=== PATIENT | female | born 1955 | race Caucasian/White ===

== ENCOUNTER 2021-09-24 08:29 | Emergency (ER) | payer MEDICARE, OTHER, SELFPAY ==
[2021-09-24] VITALS (19 sets, daily range): BP systolic 130–149; BP diastolic 67–87; PULSE 65–83; RESP 16–18; TEMP 36.9–37.2; O2SAT 97–100
--- NOTE | ~2021-09-24 | CT_ITS ---
EXAMINATION: CTA brain carotid DATE: 09/24/2021 14:15 INDICATION: Dizziness. Headache. TECHNIQUE: Computed tomographic angiography (CTA) of the head was performed with 100 mL Omnipaque-350 intravenous contrast. CTA of the neck was performed with intravenous contrast. Automated exposure co ntrol and iterative reconstruction technique were employed. The dose-length product was 1075.47 mGy-c m. Maximum intensity projection and volume rendered 3D-reconstructions were created by the [facility]arta st on a separate workstation. COMPARISON: Head CT 09/24/2021 FINDINGS: HEAD CTA: There is no intracranial hemorrhage, acute infarction, or abnormal intracranial mass lesion . The ventricles are normal in size. There is mild mucosal thickening in right maxillary sinus. The o rbits are normal. The mastoid air cells are normal. The vertebral arteries are codominant. There is n o significant stenosis of basilar artery or the posterior cerebral arteries. There is no significant stenosis of the intracranial internal carotid arteries or anterior or middle cerebral arteries. Anter ior communicating artery is normal. NECK CTA: There are no pathologically enlarged lymph nodes. There is no significant stenosis of the v ertebral arteries there is mild plaque in the proximal internal carotid arteries. There is 0% stenosi s of the proximal right internal carotid artery relative to normal distal artery lumen diameter (NASC ET criteria). There is 0% stenosis of the proximal left internal carotid artery relative to normal di stal artery lumen diameter. There is mild cervical spondylosis. There are mild chronic compression fr actures of T2 and T4. IMPRESSION: 1. No acute intracranial pathology. 2. No aneurysm or significant intracranial arterial stenosis. 3. 0% stenosis of the proximal internal carotid arteries relative to normal distal artery lumen diame ters (NASCET criteria). Reviewed, dictated and finalized at location A. IMPRESSION: 1. No acute intracranial pathology. 2. No aneurysm or significant intracranial arterial stenosis. 3. 0% stenosis of the proximal internal carotid arteries relative to normal dis wu artery lumen diameters (NASCET criteria).
--- NOTE | ~2021-09-24 | CT_ITS ---
EXAMINATION: CT brain wo con EXAM DATE: 09/24/2021 09:06 INDICATION: Headaches with emesis. TECHNIQUE: Spiral CT of the head was performed without contrast. Axial, coronal and sagittal images were reviewed. The dose-length product (DLP) for this examination was 605.33 mGy-cm. The exposure w as tailored according to patient size, and iterative reconstruction (ASIR) was used as additional dos e reduction technique. There is no prior study for comparison. FINDINGS: There is no acute intraparenchymal hemorrhage. No evidence of intraparenchymal brain mass lesion. No evidence of acute infarction. There is no mass effect or midline shift. The ventricles are normal in size. There are no extra-axial collections. There are no acute calvarial fractures. T he orbits are unremarkable. Soft tissue is unremarkable. The visualized sinuses and mastoid air matteo ls are well aerated. IMPRESSION: No acute intracranial findings. Reviewed, dictated and finalized at location A.
[2021-09-24 09:03] LABS: Basophils Percent Auto 0.4 % (0.2-1.2); Eosinophils Percent Auto 0.8 % (0-4.4); Hematocrit 45.2 % (37.0-47.0); Hemoglobin 14.8 g/dL (12.0-15.0); Immature Granulocyte Absolute 0.02 K/mm3 (0.00-0.031); Immature Granulocyte Percent A 0.4 % (0-0.5); Lymphocytes Absolute Auto 1.08 K/mm3 (0.9-3.2); Lymphocytes Percent Auto 20.7 % (18.3-44.2); Mean Corpuscular HGB Conc 32.7 g/dl (32-36); Mean Corpuscular Hemoglobin 29.3 pg (26-34); Mean Corpuscular Volume 89.5 fl (80-100); Mean Platelet Volume 9.8 fl (7.4-10.4); Monocytes Absolute Auto 0.4 K/mm3 (0.1-0.6); Monocytes Percent Auto 8.4 % (2.6-8.5); Neutrophils Absolute Auto 3.6 K/mm3 (1.3-6.7); Neutrophils Percent Auto 69.3 % (45.5-73.1); Platelet Count Result 251 k/mm3 (150-375); Red Blood Count 5.05 M/mm3 (4.2-5.4); Red Cell Distribution Width 13.6 % (11.5-14.5); White Blood Count 5.2 K/mm3 (4.5-10.0)
[2021-09-24 09:12] LABS: Prothrombin Time 12.7 Seconds (11.1-14.7)
[2021-09-24 09:13] LABS: Partial Thromboplastin Time 28.7 SECONDS (22.3-36.8)
[2021-09-24 09:14] LABS: Alanine Aminotransferase 23 U/L (4-35); Albumin Level 4.6 g/dL (3.5-5.1); Alkaline Phosphatase 64 U/L (38-126); Anion Gap 7 mmol/L (8-16); Aspartate Amino Transferase 24 U/L (14-36); Bilirubin,Total 0.6 mg/dL (0.2-1.3); Blood Urea Nitrogen 13 mg/dL (7-17); Calcium 9.5 mg/dL (8.4-10.2); Carbon Dioxide 28 mmol/L (22-30); Chloride 104 mmol/L (98-107); Estimated CRCL calculation 59 ml/min; Estimated Glomerular Filt Rate > 60; Glucose 139 mg/dL (65-110); Potassium 4.2 mmol/L (3.4-5.0); Sodium 139 mmol/L (137-145)
[2021-09-24] MEDS: SODIUM CHLORIDE 0.9% IV 1,000 ML 999 ML IV CONT (09:25)
[2021-09-24] MEDS: ONDANSETRON INJ 4 MG/2 ML VIAL IV PUSH (09:26)
[2021-09-24] MEDS: KETOROLAC 30 MG/ML VIAL (*BKC) IV PUSH (09:28)
[2021-09-24 10:44] LABS: CRP < 0.5 mg/dL (<1.0)
[2021-09-24] MEDS: fentaNYL CITRATE INJ (*CRX) 100 MCG/2 ML VIAL 25 MCG IV PUSH (10:51)
[2021-09-24 11:04] LABS: Erythrocyte Sedimentation Rate 20 mm/hr (0-20)
[2021-09-24] MEDS: diphenhydrAMINE HCl INJ 50 MG/ML VIAL 25 MG IV PUSH (12:29)
--- NOTE | 2021-09-24 12:36 | PC.NURSE ---
CTA ordered, PT on;y has 22g IV attempted to place a 20g IV unsuccessfully due to poor vasculature. PT wishes to take Benadryl prior to additional IV attempts.
--- NOTE | 2021-09-24 13:38 | PC.NURSE ---
ANIMAL CAREGIVER attempted US guided IV unsuccessfully. Vascular access now at bedside to attempt IV placement.
--- NOTE | 2021-09-24 15:07 | ED.GENADULT ---
HPI - General Adult General Chief complaint: Headache Stated complaint: Headache w/ vomiting Time Seen by Provider: 09/24/21 08:43 Source: RN notes reviewed History of Present Illness HPI narrative: Patient presents emergency department from home for headache. Patient states symptoms began 2 days ago the pain is located in the left temporal region and does not radiate the pain begins just over the left eyebrow and radiates down to the left zoroastrian area she denies any pressure in the eye she denies any vision changes she denies any generalized headache or radiation of the pain to anywhere other than in the left temporal region she states she has had 2 episodes of nausea vomiting with the pain and she states that she took Tylenol at home for the pain with minimal relief she denies any fevers or chills rhinorrhea sore throat chest pain shortness of breath or any other symptoms she denies any neck pain. States she does have a history of tinnitus and recently saw ENT. She states the area is tender to touch she denies any known rashes Related Data Home Medications Medication Instructions Recorded Confirmed fexofenadine 180 mg tablet 180 mg PO DAILY 06/04/19 07/13/21 vit cap PO 01/04/21 07/13/21 C,E,zinc,Wr-uvqry-3-lutein-zeaxanthin 250 mg-2.5 mg-0.5 mg capsule vitamins A,C,R-optr-hpsias 14,320 1 cap PO BID 07/13/21 07/13/21 unit-226 mg-200 unit capsule Allergies Allergy/AdvReac Type Severity Reaction Status Date / Time codeine Allergy Intermediate Vomiting Verified 09/24/21 10:55 morphine Allergy Intermediate Vomiting Verified 09/24/21 10:55 piroxicam Allergy Intermediate Blister Verified 09/24/21 10:55 tramadol Allergy Intermediate Vomiting Verified 09/24/21 10:55 Review of Systems Review of Systems: Gen.: Denies fevers or chills Eyes: Denies eye pain or visual change ENT: Denies congestion Respiratory: Denies shortness of breath or cough CV: Denies chest pain or palpitations GI: Denies abdominal pain or diarrhea reports nausea vomiting x2 Musculoskeletal: Denies back pain or muscle pain Neuro: See HPI Skin: Denies rash Except as documented, all other systems reviewed and negative PMFSH Past Medical History Medical History Arthritis Chest wall contusion Congestion of nasal sinus Contusion of foot, left Eye injury Hair loss HLD (hyperlipidemia) Hyperthyroidism Vision changes Surgical History Surgical History History of breast surgery History of bunionectomy Left foot by Dr. Santillan History of sinus surgery deviated septum by Dr. ramos Family History Family History Mother Family history of Alzheimer's disease Father Family history of pancreatic cancer, Onset Age: 79 Patient's father is Other Arthritis Breast cancer Diabetes mellitus HLD (hyperlipidemia) Heart disease Hypertension Pancreatic cancer Social History Social History Smoking status: Never smoker Second hand tobacco smoke exposure: No Smoking end date: 06/19/86 Alcohol intake: current Substance use: never Substance use type: does not use Gender identity (if verbalized by the patient): Female Exam Narrative: APPEARANCE: No acute distress, nontoxic, resting in bed HEENT: Normocephalic, atraumatic, OMM, TMs clear bilaterally tender to palpation over the left forehead just above the left eyebrow and then laterally down to the left lateral temporal region there is no overlying erythema or signs of rash EYES: PERRL, EOMI NECK: Supple, nontender, full range of motion without pain, no meningismus RESPIRATORY: No respiratory distress, clear to auscultation bilaterally with no rhonchi wheezing or rales CARDIOVASCULAR: RRR s murmur ABDOMINAL: Soft, nontender, nondiste
== END 2021-09-24 15:30 | disposition home or self-care (01) ==
PROVIDERS: Emergency Provider Emergency Medicine; PCP Internal Medicine
DX: R51.9 Headache, unspecified (principal); M19.90 Unspecified osteoarthritis, unspecified site; E78.5 Hyperlipidemia, unspecified; E05.90 Thyrotoxicosis, unspecified without thyrotoxic crisis or storm; Z87.891 Personal history of nicotine dependence
CPT/HCPCS: 36415; 70450; 70496; 70498; 80053; 85025; 85610; 85652; 85730; 86140; 96361; 96374; 96375; 99284; J1200; J1885; J2405; J3010; J7030; Q9967

== ENCOUNTER 2023-03-27 12:29 | Outpatient (CLI) | payer MEDICARE, OTHER, SELFPAY ==
--- NOTE | ~2023-03-27 | XR_ITS ---
EXAMINATION: XR knee LT 3V DATE: 03/27/2023 13:02 INDICATION: Left knee pain. TECHNIQUE: 3 views of left knee including standing views were obtained. COMPARISON: None. FINDINGS: Bone alignment is normal. No fracture. There is mild tricompartmental osteoarthritis. No kn ee joint effusion. IMPRESSION: 1. Mild left knee osteoarthritis. Reviewed, dictated and finalized at location A.
--- NOTE | ~2023-03-27 | XR_ITS ---
EXAM: XR knee RT 3V DATE: 03/27/2023 13:02 HISTORY: M25.561 - Pain in right knee, TWIST INJURY 2WKS AGO . COMPARISON: None available. FINDINGS: Decreased mineralization. No fracture or dislocation. No lytic or blastic lesion. Severe m edial joint space narrowing. Moderate tricompartmental osteophytosis. Moderate volume joint effusion. No erosion or periosteal change. Soft tissues within normal limits. IMPRESSION: No acute osseous finding in the right knee. Tricompartmental right knee osteoarthritis, severe in the medial compartment. Reviewed, dictated and finalized at location K.
== END 2023-03-27 12:30 | disposition home or self-care (01) ==
PROVIDERS: PCP Internal Medicine; Visit Provider Internal Medicine
DX: M25.561 Pain in right knee (principal); M25.562 Pain in left knee; M17.0 Bilateral primary osteoarthritis of knee
CPT/HCPCS: 73562

== ENCOUNTER 2023-10-30 11:33 | Outpatient (CLI) | payer MEDICARE, OTHER, SELFPAY ==
--- NOTE | ~2023-10-30 | XR_ITS ---
AP and lateral views of the right hip Clinical history: Pain Findings: No acute fracture or dislocation is seen. Osseous alignment is anatomic. Right hip joint is preserved. Soft tissues are unremarkable. Impression: No significant abnormality is seen. Reviewed, dictated and finalized at location M. Impression: No significant abnormality is seen.
--- NOTE | ~2023-10-30 | XR_ITS ---
Lumbosacral Spine: AP and lateral views Clinical History: Pain Findings: The normal lordotic curve is maintained. No fracture seen. Minimal grade 1 anterolisthesis of L4 over L5 present. There is advanced facet arthropathy throughout the lumbar spine. There are min imal degenerative disc changes. The sacroiliac joints are normally outlined. Impression: Moderate degenerative spondylosis overall. Minimal grade 1 anterolisthesis of L4 over L5. Reviewed, dictated and finalized at location . Impression: Moderate degenerative spondylosis overall. Minimal grade 1 anterolisthesis of L4 over L5.
== END 2023-10-30 11:34 | disposition home or self-care (01) ==
LOC: ANHIMG 11:37
PROVIDERS: PCP Internal Medicine; Visit Provider Internal Medicine
DX: M25.551 Pain in right hip (principal); M54.30 Sciatica, unspecified side; M79.604 Pain in right leg
CPT/HCPCS: 72100; 73502

== ENCOUNTER 2023-12-05 09:44 | Outpatient (CLI) | payer MEDICARE, OTHER, SELFPAY ==
--- NOTE | ~2023-12-05 | CT_ITS ---
EXAMINATION: CT chest high resolution wo ar DATE: 12/05/2023 10:06 INDICATION: Z77.090 - Contact with and (suspected) exposure to asbestos TECHNIQUE: Computed tomography (CT) of the chest, including high-resolution images of the lungs, was performed without intravenous contrast. Automated exposure control and iterative reconstruction techn ique were employed. The dose-length product was 169.71 mGy-cm. COMPARISON: Outside CT dated 02/23/2020. FINDINGS: CHEST: Thoracic aorta: No significant dilation. Mild arch calcification. Lung parenchyma and airways: Minimal apical pleural scarring. Minimal dependent atelectasis The airwa ys are clear. Thoracic inlet, axillae and chest wall: No thyroid or soft tissue mass. No axillary lymphadenopathy. Surgical clips in the right breast. Mediastinum: No mass or lymphadenopathy. Heart and pericardium: Normal heart size. No pericardial effusion. Coronary artery calcifications: Mild. Pleura: Right medial lower thoracic pleural plaque, with peripheral calcification. Upper abdomen: No significant finding. Thoracic bones: Mild anterior wedge deformity at T2-T5 with concave superior endplate deformities. Th e changes at T3 have increased slightly. The changes at T5 are new. Old healed right rib fractures. IMPRESSION: Calcified right medial lower thoracic pleural plaque, consistent with asbestosis. No acute cardiopulmonary process detected. Mild anterior wedge compression fractures/superior endplate deformities at T2-T5 with mild interval p rogression since the 2019 examination at T3 and T5. Consider bone density evaluation. Reviewed, dictated and finalized at location K. IMPRESSION: Calcified right medial lower thoracic pleural plaque, consistent with asbestosi s. No acute cardiopulmonary process detected. Mild anterior wedge compression fractures/superior endplate deformities at T2-T 5 with mild interval progression since the 2019 examination at T3 and T5. Consi ashkan bone density evaluation.
== END 2023-12-05 09:45 | disposition home or self-care (01) ==
PROVIDERS: PCP Internal Medicine; Visit Provider Internal Medicine
DX: R91.8 Other nonspecific abnormal finding of lung field (principal); Z77.090 Contact with and (suspected) exposure to asbestos; M48.54XA Collapsed vertebra, not elsewhere classified, thoracic region, initial encounter for fracture
CPT/HCPCS: 71250

== ENCOUNTER 2024-01-22 12:09 | Outpatient (CLI) | payer MEDICARE, OTHER, SELFPAY ==
--- NOTE | ~2024-01-22 | DEXA_ITS ---
Bone Density Report Name: BRENDAN MAHER Age: 68 Sex: Female Ethnicity: White Date of : 1955 Indication: postmenopausal; screening for osteoporosis; height loss; cancer; secondary osteoporosis; Referring Provider: JOLEEN PALMA Study: Bone densitometry was performed. Exam Date: January 22, 2024 Accession number: [id number] Bone Density: Region BMD T-score Z-score Classification AP Spine(L1-L4) 1.011 -0.3 1.7 Normal Femoral Neck (Left) 0.742 -1.0 0.8 Normal Total Hip (Left) 0.979 0.3 1.7 Normal Femoral Neck (Right) 0.778 -0.6 1.1 Normal Total Hip (Right) 0.966 0.2 1.6 Normal Total Hip Mean 0.973 0.3 1.7 Normal World Health Organization criteria for BMD impression classify patients as: Normal (T-score at or above -1.0), Osteopenia (T-score between -1.0 and -2.5), or Osteoporosis (T-score at or below -2.5). 10-year Fracture Risk: FRAX not reported because: All T-scores for Spine Total, Hip Total, Femoral Neck at or above -1.0 Clinical Information Provided by Patient: Has secondary osteoporosis Has used the following medications: Vitamin D Has the following medical conditions: Cancer Patient maximum height was 65.0 Drinks caffeinated beverages Onset of menses at age 13 Number of children 0 Impression: The patient has normal bone mass. Discussion: BONE DENSITY IS ABOVE THE MINIMUM DESIRABLE LEVEL AT ALL SKELETAL SITES TESTED. This patient?s bone mineral density is above the minimum desirable level (T-score -1.0 or better) at all sites measured. The patient should follow a healthful lifestyle (good nutrition with adequate calcium and vitamin D, and appropriate weight-bearing exercise). Follow-Up: Consider repeating this study in 5 years or sooner if there is some new clinical indication. Reported by: LESLI on 01/23/2024 8:57:00 AM. Reviewed, dictated and finalized at location ASkyla CRESPO
== END 2024-01-22 12:10 | disposition home or self-care (01) ==
LOC: ANHIMG 12:11
PROVIDERS: PCP Internal Medicine; Visit Provider Internal Medicine
DX: Z13.820 Encounter for screening for osteoporosis (principal); R29.890 Loss of height; Z78.0 Asymptomatic menopausal state
CPT/HCPCS: 77080